=== PATIENT | female | born 1975 | race Caucasian/White ===

== ENCOUNTER → 2016-08-09 | Day surgery (SDC) | payer OTHER | END | disposition home or self-care (01) | LOC: SDC 06:51 | DX: Z30.432 Encounter for removal of intrauterine contraceptive device (principal); N92.0 Excessive and frequent menstruation with regular cycle; M19.90 Unspecified osteoarthritis, unspecified site; F41.8 Other specified anxiety disorders; E78.5 Hyperlipidemia, unspecified; K21.9 Gastro-esophageal reflux disease without esophagitis; E66.9 Obesity, unspecified; Z87.19 Personal history of other diseases of the digestive system; Z87.440 Personal history of urinary (tract) infections; Z79.899 Other long term (current) drug therapy; Z87.01 Personal history of pneumonia (recurrent); G89.29 Other chronic pain; Z98.51 Tubal ligation status | CPT/HCPCS: J1885; J2704; J2765 ==